=== PATIENT | female | born 1990 | race Caucasian/White ===

== ENCOUNTER 2018-08-26 12:59 | Emergency (ER) | payer OTHER | END 2018-08-26 14:18 | disposition home or self-care (01) | LOC: EDBD 12:59 → MADERS 12:59 | DX: J02.0 Streptococcal pharyngitis (principal); F41.9 Anxiety disorder, unspecified; Z79.899 Other long term (current) drug therapy | CPT/HCPCS: 87081; 87430; 99283 ==

== ENCOUNTER 2018-11-12 22:35 | Emergency (ER) | payer OTHER ==
[2018-11-12] MEDS ORDERED: Ketorolac Tromethamine 30 MG/ML VIAL ONE (23:09)
[2018-11-12 23:27] LABS: Bilirubin Negative (Negative); Blood, Urine Trace (Negative); Clarity Clear (Clear); Glucose, Urine (Dipstick) Negative (Negative); Leukocyte Negative (Negative); Nitrite Negative (Negative); Protein, Urine (Dipstick) Negative (Neg-Trace); Specific Gravity, Urine 1.025 (1.005-1.030); pH, Urine 6.5 (5.0-9.0)
[2018-11-12 23:31] LABS: Pregnancy Test - Urine (BHCG) Negative (Negative); Pregu Control Background? CLEAR/WHITE (CLR/WHITE); Pregu Control Bar Appear? YES (CONTROL BAR); Specific Gravity 1.025 (1.002-1.036)
[2018-11-12 23:33] LABS: Bacteria/HPF Rare-Few HPF (None Seen); RBC/HPF 0-3 HPF (0-3); WBC/HPF 0-3 HPF (0-3)
--- NOTE | 2018-11-13 | CT ---
ABDOMEN AND PELVIC CT SCAN WITHOUT IV CONTRAST: 11/12/18 HISTORY: 28-year-old female with history of left flank pain for ten hours. Lung base are clear. Status post cholecystectomy without ductal dilatation. Minimal fatty changes of the liver. Pancreas, spleen and adrenal glands are unremarkable as evaluated without IV contrast. No renal calculus or acute obstruction. Normal appearing appendix. No abscess, adenopathy, or abno rmal fluid collection within the abdomen or pelvis. Evidence for spondylolysis at L5-S1. A small fat containing umbilical hernia. IMPRESSION: No renal calculus or obstruction. IUD in place within the uterus. Small fat containing umbilical h ernia. Status post cholecystectomy with some fatty changes in the liver. Other findings as above. POS: WHIT
== END 2018-11-13 00:32 | disposition home or self-care (01) ==
LOC: MADERS 22:35
DX: S39.011A Strain of muscle, fascia and tendon of abdomen, initial encounter (principal); G43.909 Migraine, unspecified, not intractable, without status migrainosus; F41.9 Anxiety disorder, unspecified; Z79.899 Other long term (current) drug therapy; X58.XXXA Exposure to other specified factors, initial encounter
CPT/HCPCS: 74176; 81003; 81015; 81025; 96374; J1885

== ENCOUNTER 2019-04-02 08:51 | Outpatient (CLI) | payer OTHER ==
[2019-04-02 09:11] LABS: #Basophils 0.1 thou/uL (0.0-0.2); #Eosinphils 0.1 thou/uL (0.0-0.7); #Lymphocytes 2.5 thou/uL (1.20-3.40); #Monocytes 0.5 thou/uL (0.11-0.59); #Neutrophils 2.3 thou/uL (1.40-6.50); %Eosinophils 1.3 % (0.0-10.0); %Lymphocytes 46.9 % (21.0-51.0); %Monocytes 8.3 % (0.0-10.0); %Neutrophils 42.5 % (42.0-75.0); Hemoglobin 12.5 g/dL (12.0-16.0); Mean Corpuscular HGB CONC 32.5 g/dL (32.0-36.0); Mean Platelet Volume 5.1 fL (7.4-10.4); Platelet Count 197 thou/uL (130-400); RBC Distribution Width 14.4 % (11.5-14.5); Red Blood Cell (RBC) Count 4.46 mill/uL (4.20-5.40); White Blood Cell (WBC) Count 5.4 thou/uL (4.8-10.8)
[2019-04-02 09:37] LABS: ALT (SGPT) 85 U/L (8-55); AST (SGOT) 66 U/L (5-34); Albumin 3.7 g/dL (3.5-5.0); Alkaline Phosphatase 109 U/L (40-150); Anion Gap 11 mmol/L (10-20); BUN (Urea Nitrogen) 10 mg/dL (7.0-18.7); Bilirubin, Total 0.8 mg/dL (0.2-1.2); Calc. Creatinine Clearance 0 mL/min (70-130); Calcium 8.6 mg/dL (7.8-10.44); Carbon Dioxide 28 mmol/L (22-29); Cardiac Risk 5.6 (Less than 4.5); Chloride 104 mmol/L (98-107); Cholesterol 141 mg/dl (< 200 Desired); Estimated GFR-MDRD Greater than 90; Globulin 3.6 g/dL (2.4-3.5); Glucose 98 mg/dL (70-105); HDL Cholesterol 25 mg/dL (>60 Neg Risk); LDL Cholesterol, Calculated 65 mg/dL; Protein, Total 7.3 g/dL (6.0-8.3); Sodium 139 mmol/L (136-145); Triglycerides 255 mg/dL (Less than 150)
--- NOTE | 2019-04-02 11:32 | RAD ---
ABDOMEN 2 VIEWS: Date: 04/02/19 HISTORY: Morbid obesity, preoperative evaluation. FINDINGS/IMPRESSION: Bilateral nipple piercings are seen. The patient is post cholecystectomy. The bowel gas pattern is un remarkable. An IUD is present. POS: WHIT
[2019-04-02 16:38] LABS: Hemoglobin A1c 4.9 % (4.0-6.0)
[2019-04-02 17:03] LABS: Ferritin 189.84 ng/mL (10-291); Free T4 (Free Thyroxine) 0.98 ng/dL (0.70-1.48)
[2019-04-02 17:04] LABS: Vitamin D, 25 Hydroxy 14.4 ng/ml (> 30.0)
[2019-04-02 17:53] LABS: Folate (Folic Acid) 7.3 ng/mL (7.0-31.4)
== END 2019-04-02 08:52 | disposition home or self-care (01) ==
LOC: MADRAD 08:51
PROVIDERS: ATTEND Family Medicine
DX: Z01.818 Encounter for other preprocedural examination (principal); E66.01 Morbid (severe) obesity due to excess calories; Z97.5 Presence of (intrauterine) contraceptive device; Z90.49 Acquired absence of other specified parts of digestive tract
CPT/HCPCS: 36415; 74019; 80053; 80061; 82306; 82607; 82728; 82746; 83036; 83540; 84425; 84439; 84443; 84481; 85025